=== PATIENT | male | born 1945 | race Caucasian/White ===

== ENCOUNTER → 2017-02-07 | Outpatient (CLI) | payer OTHER ==
[~2017-02-07] MED LIST: 1-ME1LIQ PO; ALLO300T2 PO; AMLO10TA2 PO; ASPI81CH37 CHEW; CHOL20005 PO; CLON0.1T PO; COZA100T PO; CYAN1TAB24; LOSA100T PO; NEUR600T PO; PANT40TA3 PO; PLAV75TA PO; PLAV75TA29 PO; PRAV20 PO; PRAV40TA2 PO
== END ==
LOC: HRAD 11:11
PROVIDERS: ATTEND Urology
DX: N28.89 Other specified disorders of kidney and ureter (principal)

== ENCOUNTER 2017-02-13 13:34 | Day surgery (SDC) | payer OTHER ==
[~2017-02-13 13:34] MED LIST changes: -AMLO10TA2 PO; -ASPI81CH37 CHEW; -CHOL20005 PO; -CLON0.1T PO; -CYAN1TAB24; -LOSA100T PO; -NEUR600T PO; -PANT40TA3 PO; -PLAV75TA29 PO; -PRAV40TA2 PO
[2017-02-13] MEDS ORDERED: PLAV75TA29 PO (14:19)
[2017-02-13] MEDS ORDERED: NEUR600T PO (14:19)
[2017-02-13] MEDS ORDERED: CLON0.1T PO ×2 (14:19)
[2017-02-13] MEDS ORDERED: AMLO10TA2 PO (14:19)
[2017-02-13] MEDS ORDERED: PANT40TA3 PO (14:19)
[2017-02-13] MEDS ORDERED: CYAN1TAB24 (14:19)
[2017-02-13] MEDS ORDERED: PRAV40TA2 PO (14:19)
[2017-02-13] MEDS ORDERED: CHOL20005 PO (14:19)
[2017-02-13] MEDS ORDERED: ASPI81CH37 CHEW (14:19)
[2017-02-13] MEDS ORDERED: ALLO300T2 PO (14:19)
[2017-02-13] MEDS ORDERED: LOSA100T PO (14:19)
--- NOTE | 2017-02-13 16:29 | RADRPT ---
EXAM DATE/TIME: 02/13/2017 00:00 [place] COMPARISON : INDICATIONS : consult for renal cryoablation OBJECTIVE: Temperature: 98.4 Heart Rate: 59 Blood Pressure: 137/69 Respiratory: 16 Oximetry: 99 PNEUMONIA VACCINE: NO HISTORY OF PRESENT ILLNESS: 71-year-old male with history of biopsy-proven left renal cell carcinoma, furham grade 1, status post cryoablation September of last year and at that time, he was found to have a Bosniak 2F cyst in the right kidney. This lesion has increased in size on recent CT with peripheral enhancement and is now concern ing for a malignancy. This mass now measures up to 3.8 cm and is partially endophytic, RENAL Score of 6 (R1,E2, N2,A,L1). Patient is without complaints and denies any unintentional weight loss, hematuri a or abdominal pain. PAST MEDICAL HISTORY : 1. Cerebrovascular disease. 2. Aneurysm, intracranial. 3. Hypercholesterolemia. 4. Hypertension. PAST SURGICAL HISTORY : 1. broken leg repair 2. bleeding ulcer 3. left renal cryo SOCIAL HISTORY : Social alcohol use. Tobacco;none. ALLERGIES: 1. NKDA MEDICATIONS: 1. Plavix (Clopidogrel Bisulfate) 75 mg q.d. 2. protonix 40 mg q.d. 3. losartan 100 mg q.d. 4. amlodipine 10 mg q.d. 5. pravastatin 40 mg q.d. 6. allopurinol 300 mg q.d. 7. aspirin 81 mg q.d. 8. gabapentin 300mg 2tabs mg t.i.d. 9. clonidine 0.1 mg prn 10. PHYSICAL EXAMINATION: General: No acute distress Abdomen: Soft, nontender nondistended IMAGING STUDIES: CT examination dated 11/21/2016 is reviewed. There is a partially cystic and solid enhancing mass in t he inferior pole of the right kidney measuring 3.8 x 3.1 cm. No evidence for renal vein invasion or p erinephric extension. ASSESSMENT: 72-year-old male with history of treated left renal cell carcinoma with now very worrisome partially solid enlarging 3.8 cm mass in the inferior pole of the right kidney, RENAL score of 6. Extensive discussion regarding treatment options including nephrectomy, partial nephrectomy, and cryo ablation. There is concern regarding appropriate margins particularly along the medial aspect of the mass given the 3.8 cm size and proximity to central calyces. I discussed this at length with the dee ent and his . Given history of now bilateral renal masses, nephron sparing procedure is still pre ferred. Biopsy would help guide future treatments given concern for suboptimal medial margins. PLAN: Tentative plan for biopsy and cryoablation. TIME SPENT: 30 minutes Freddy Gonzalez MD on February 13, 2017 at 16:10 Board Certified Radiologist. This report was verified electronically.
== END 2017-02-13 15:00 | disposition home or self-care (01) ==
LOC: HROP 13:34 → HRIP 13:35 → HROP 15:00
PROVIDERS: ATTEND Urology
DX: N28.1 Cyst of kidney, acquired (principal); C64.2 Malignant neoplasm of left kidney, except renal pelvis; I10 Essential (primary) hypertension; I67.9 Cerebrovascular disease, unspecified; E78.00 Pure hypercholesterolemia, unspecified; Z85.528 Personal history of other malignant neoplasm of kidney

== ENCOUNTER 2017-03-06 08:02 | Day surgery (SDC) | payer OTHER ==
[~2017-03-06] VITALS: Ht 177.8 cm; Wt 114.5 kg
[~2017-03-06 08:02] MED LIST changes: -1-ME1LIQ PO; +AMLO10TA2 PO; +ASPI81CH6 CHEW; +CLON0.1T PO; -COZA100T PO; +CYAN1TAB24; +D200CAP PO; +LOSA100T PO; +NEUR600T PO; +PANT40TA3 PO; -PLAV75TA PO; +PLAV75TA29 PO; -PRAV20 PO; +PRAV40TA2 PO
[2017-03-06 08:20] VITALS: BP 138/76; PULSE 47; RESP 20; TEMP 97.6; O2SAT 97
[2017-03-06] MEDS ORDERED: INSULIN HUMAN REGULAR 1,000 UNITS/10 ML VIAL SQ PRN (09:00)
[2017-03-06] MEDS ORDERED: SODIUM CHLORID 0.9% 500 ML IV PRN (09:00)
[2017-03-06] MEDS ORDERED: CHLORHEXIDINE GLUCONATE 2 % 1 PACK (2 CLOTHS) TOPICAL PRN (09:00)
[2017-03-06] MEDS ORDERED: METOPROLOL TARTRATE 25 MG TAB PO PRN (09:00)
[2017-03-06] MEDS ORDERED: LACTATED RINGER'S 1000 ML IV PRN (09:00)
[2017-03-06] MEDS ORDERED: SODIUM CHLOR 0.9% 1000 ML INJ 1,000 ML IV SCH (09:00)
[2017-03-06] MEDS ORDERED: POVIDONE IODINE 5% (ANTISEPSIS KIT) 4 APPLICATIONS EACH NARE PRN (09:00)
[2017-03-06] MEDS ORDERED: ceFAZolin 2 GM PREMIX 50 ML IV SCH (09:00)
[2017-03-06 09:05] LABS: AUTOMATED NEUTROPHIL # 3.3 TH/MM3 (1.8-7.7); BASOPHIL # 0.1 TH/MM3 (0-0.2); EOSINOPHIL # 0.2 TH/MM3 (0-0.4); EOSINOPHIL % 3.6 % (0.0-4.0); HEMATOCRIT 40.6 % (39.0-51.0); HEMO FLAGS DIFF FINAL; LYMPH % 33.3 % (9.0-44.0); LYMPHOCYTE # 2.2 TH/MM3 (1.0-4.8); MEAN CELL VOLUME 90.4 FL (80.0-100.0); MEAN CORPUSCULAR HGB CONC 33.2 % (32.0-36.0); MONO % 12.1 % (0.0-8.0); PLATELET COUNT 224 TH/MM3 (150-450); RED CELL DISTRIBUTION WIDTH 14.4 % (11.6-17.2); WHITE BLOOD COUNT 6.6 TH/MM3 (4.0-11.0)
[2017-03-06 09:13] LABS: APTT (PATIENT) 27.6 SEC (24.3-30.1); PROTHROMBIN TIME - PATIENT 11.1 SEC (9.8-11.6)
[2017-03-06] MEDS ORDERED: LIDOCAINE 1%/EPINEPHrine 1:100,000 SOLN 20 ML VIAL ONE (09:32)
[2017-03-06 09:34] LABS: BICARBONATE 25.3 MEQ/L (21.0-32.0)
[2017-03-06 09:35] LABS: POTASSIUM 5.3 MEQ/L (3.5-5.1)
--- NOTE | 2017-03-06 15:18 | EKG ---
Date Performed: 03/06/2017 Time Performed: 08:32:38 PTAGE: 72 years EKG: SINUS BRADYCARDIA WITH OCCASIONAL VENTRICULAR PREMATURE COMPLEXES DELAYED R WAVE PROGRESSIO N PROBABLE INFERIOR MYOCARDIAL INFARCTION , PROBABLY OLD ABNORMAL ECG PREVIOUS TRACING : 09/21/2015 07.36 Compared to prior tracing no significant change DOCTOR: Marcelo Camacho Interpretating Date/Time 03/06/2017 15:16:20
== END 2017-03-06 11:51 | disposition home or self-care (01) ==
LOC: HRIP 08:02 → HRAD 08:02
PROVIDERS: ATTEND Urology
DX: D41.01 Neoplasm of uncertain behavior of right kidney (principal); R94.31 Abnormal electrocardiogram [ECG] [EKG]; Z53.09 Procedure and treatment not carried out because of other contraindication; Z86.73 Personal history of transient ischemic attack (TIA), and cerebral infarction without residual deficits; Z01.810 Encounter for preprocedural cardiovascular examination; Z01.818 Encounter for other preprocedural examination
CPT/HCPCS: 80048; 85025; 85610; 85730; 93005

== ENCOUNTER 2017-03-25 10:18 | Inpatient (IN) | payer OTHER, MEDICARE ==
[2017-03-25] VITALS (15 sets, daily range): BP systolic 116–126; BP diastolic 64–76; PULSE 40–48; RESP 16; TEMP 97.1–97.9; O2SAT 98–100
[~2017-03-25] VITALS: Ht 175.3 cm; Wt 108.7 kg
[2017-03-25] MEDS ORDERED: IOHEXOL 350 MG/ML 100 ML BTL (for Cath Lab) OTHER ONE (10:19)
[2017-03-25 11:11] LABS: AUTOMATED NEUTROPHIL # 3.1 TH/MM3 (1.8-7.7); BASOPHIL # 0.1 TH/MM3 (0-0.2); BASOPHIL % 0.8 % (0.0-2.0); EOSINOPHIL # 0.2 TH/MM3 (0-0.4); EOSINOPHIL % 3.7 % (0.0-4.0); HEMATOCRIT 40.1 % (39.0-51.0); HEMO FLAGS DIFF FINAL; LYMPH % 33.7 % (9.0-44.0); LYMPHOCYTE # 2.1 TH/MM3 (1.0-4.8); MEAN CELL VOLUME 90.5 FL (80.0-100.0); MEAN CORPUSCULAR HEMOGLOBIN 29.6 PG (27.0-34.0); MEAN CORPUSCULAR HGB CONC 32.7 % (32.0-36.0); MONO % 12.5 % (0.0-8.0); NEUT % 49.3 % (16.0-70.0); PLATELET COUNT 223 TH/MM3 (150-450); RED BLOOD COUNT 4.43 MIL/MM3 (4.50-5.90); RED CELL DISTRIBUTION WIDTH 14.3 % (11.6-17.2); WHITE BLOOD COUNT 6.3 TH/MM3 (4.0-11.0)
[2017-03-25 11:21] LABS: APTT (PATIENT) 27.3 SEC (24.3-30.1); PROTHROMBIN TIME - PATIENT 10.7 SEC (9.8-11.6)
[2017-03-25 11:27] LABS: POTASSIUM 3.7 MEQ/L (3.5-5.1)
[2017-03-25] MEDS ORDERED: MIDAZOLAM HCL 2 MG/2 ML VIAL ONE ×2 (12:19→13:05)
[2017-03-25] MEDS ORDERED: HEPARIN-NS/PF INJ 1,000 ML ONE (12:19)
[2017-03-25] MEDS ORDERED: HEPARIN SODIUM - IV 10,000 UNITS/10 ML VIAL ONE (12:20)
[2017-03-25] MEDS ORDERED: NITROGLYCERIN INJ 5 ML ONE (12:20)
[2017-03-25] MEDS ORDERED: VERAPAMIL HCL 5 MG/2 ML VIAL ONE (12:20)
[2017-03-25] MEDS ORDERED: STERILE WATER FOR INJECTION 10 ML VIAL ONE (12:58)
[2017-03-25] MEDS ORDERED: BIVALIRUDIN 250 MG VIAL ONE (12:58)
[2017-03-25] MEDS ORDERED: MISC INFORMATION XX ONE (13:45)
--- NOTE | 2017-03-25 13:48 | CATHPROC ---
DZZOM HIS Report Study Information Study Number Admission Scheduled Start Study Start [id number] Mar 25 2017 10:18AM 03/25/2017 Mar 25 2017 12:15PM [place] [facility] Cardiac Catheterization Admit Source Facility Department Other [facility] - Dental Office Assistant Physician and Clinical Staff Initial Jose Mcclendon Retail Gift Card Merchandising Sary Azevedo,DEIDRA Retail Gift Card Merchandising Dorinda Garcia,DEIDRA Recorder Jef Marie,RT(R) Scrub Anjel Rolon,RT(R) Procedures Performed Procedure Location (Site) Vessel Name Coronary Angiograms LCA Left Coronary Coronary Angiograms RCA Right Coronary L Heart Cath Wire insertion Radial (right) Radial Art. Equipment Time Post Exchange Manager Description Size Mfg Part Number Used/Scraped TRANSDUCER, TRUWAVE [id number] 12:23 VELIZ MUNOZ * Used W/STOCKCOCK *[id number] INTRODUCER SET, 13:16 [employer] FR 5 [id number] *[id number] Used MICROPUNCTURE, STIFFENED [id number] *[id number] *[id number] *[id number] *[id number] 12:23 [employer] PACK, CCL CUSTOM * Used *[id number] 12:23 [employer] SUPPORT, ARTERIAL ADULT [id number] *[id number] Used BAND, RADIAL COMPRESSION TR [id number] 13:20 [employer] MEDICAL 29CM Used LARGE 29 *[id number] 12:23 [employer] WIRE, 3MMJ .035 180CM 180CM Used *[id number] 12:23 NAMIC MANIFOLD, 4 PORT * Used *[id number] 12:23 [employer] OMNIPAQUE, 350 MG, 150ML 150ML [id number] Used [id number] 12:23 [employer] MED[employer] BLANKET,WARM AIR CCL * Used *[id number] CATHETER, FR5 OPTITORQUE [id number] 12:50 [employer] MEDICAL FR 5 Used KOFI RADIAL *[id number] 13:16 [employer] MEDICAL SHEATH, FR6 TERUMO (10CM) FR 6 Used *[id number] SHEATH, FR6 TRANSRADIAL [id number] 12:23 [employer] MEDICAL FR 6 Used SLENDER 10CM *[id number] WIRE, RUNTHROUGH NS FLOPPY [id number] 13:02 [employer] 180CM Used .014 180CM *[id number] WIRE, ANGLED GLIDE .035 [id number] 12:52 [employer] MEDICAL/RACQUEL 260CM Used 260CM *[id number] Equipment Model, Serial, Lot Number and Expiration Data Description Model Number Serial Number Lot Number Expiration Date INTRODUCER SET, [id number] 02-13-2020 MICROPUNCTURE, STIFFENED History: Current Medications Medication Dosage/Unit Route Frequency Last Date/Time Taken ASA 81 mg PLAVIX 75 mg Statins (any) History: Allergies Allergy Reaction No Known Allergies History: Risk Factors Family History of Hypertension Dyslipidemia Previous AR Previous Heart Failure Premature CAD Yes Yes No No No Prior Valve Prior PCI Prior CABG Surgery No No No Cerebrovascular Peripheral Artery Chronic Lung On Dialysis Diabetes Disease Disease Disease No Yes No No No History: Stress Tests Stress or Imaging Studies Performed Yes Standard Exercise Stress Test No Stress Echo No Stress Test SPECT Stress Test SPECT Result Stress Test SPECT Ischemia Risk/Extent Yes Positive Intermediate Stress Test CMR No Cardiac CTA Coronary Calcium Score No No History: Other Disease Selection Items HTN History: Other Current Smoker No Labs Hgb (g/dl) Hct (%) RBC (MIL/MM3) WBC (l/cumm) Platelets (thousands) 11.60-17.00 35.00-51.00 4.00-5.90 4.00-11.00 150.00-450.00 13.1 40.1 4.4 6.3 223 Glucose (mg/dl) BUN (mg/dl) Creatinine (mg/dl) BUN:Creatinine (1:x) 74.00-106.00 7.00-18.00 0.50-1.30 10.00-20.00 105 18 1.5 12 Na (meq/l) K (meq/l) Cl (meq/l) CO2 (mmol/L) Ca (mg/dl) 136.00-145.00 3.50-5.10 98.00-107.00 21.00-32.00 8.50-10.10 143 3.7 108 26 8.5 PT (sec) PTT (sec) INR (PTT:PT) 9.80-11.60 24.30-30.10 0.90-1.10 10.7 27.3 1 CPK-MB (ng/ML) 0.50-3.60 Not Drawn Medication Medication Total Dose (Bolus/Oral) Medication Total Dosage/Unit 1% XYLOCAINE 5 mL ANGIOMAX BOLUS 16 mL FENTANYL 75 mcg RADIAL COCKTAIL 5 mL (Bolus) VERSED 3 mg Medications (Bolus/Oral) Medication Time Given Dosage/Unit Administered By Reason 03/25/2017 12:48:54 1% XYLOCAINE 5 mL MosquedaDelvis Sawantro PM 5 mL 1% XYLOCAINE given in lab by Jose Rodriguez in Right Radial via Subcutaneous. 03/25/2017 12:48:56 VERSED 2 mg Sary Azevedo PM 2 mg VERSED given in lab by Sary Azevedo RN in Left Antecubital via Peripheral IV. 03/25/2017 12:49:20 FENTANYL 50 mcg Sary Azevedo PM 50 mcg FENTANYL given in lab by Sary Azevedo RN in Left Antecubital via Peripheral IV. 03/25/2017 12:50:10 Ntg 200mcg Verapamil 2.5mg Heparin RADIAL COCKTAIL 5 mL (Bolus) Sary Azevedo PM 2500U 5 mL (Bolus) RADIAL COCKTAIL given in lab by Sary Azevedo RN via Radial. Using [Solution Name]. Re ason: Ntg 200mcg Verapamil 2.5mg Heparin 2500U. ANGIOMAX BOLUS 03/25/2017 1:02:54 PM 16 mL Sary Azevedo 16 mL ANGIOMAX BOLUS given in lab by Sary Azevedo RN in Left Antecubital via Peripheral IV. VERSED 03/25/2017 1:06:39 PM 1 mg Sary Azevedo 1 mg VERSED given in lab by Sary Azevedo RN in Left Antecubital via Peripheral IV. FENTANYL 03/25/2017 1:06:45 PM 25 mcg Sary Azevedo 25 mcg FENTANYL given in lab by Sary Azevedo RN in Left Antecubital via Peripheral IV. Medication (Drip) Medication Time Given Dosage/Unit Concentration/Unit Diluent (ml) Solution ANGIOMAX DRIP 03/25/2017 1:03:17 PM 1.75 mg/kg/hr 250 mg 50 NaCl .9 1.75 mg/kg/hr ANGIOMAX DRIP given in lab by Sary Azevedo RN in Left Antecubital via Peripheral IV. Pump/Drip Flow = 38.4 ml/hr using NaCl .9 with a concentration of 250 mg in 50 ml. ANGIOMAX DRIP 03/25/2017 1:27:21 PM 0 units/hr 0 STOPPED 0 units/hr ANGIOMAX DRIP STOPPED given in lab by Dorinda Garcia, DEIDRA. Pump/Drip Flow = 0 ml/hr using [Solution Name]. Initial Case Assessment Cardiovascular HR Rhythm NIBP Chest Pain 50 Sinus/Jameel 122/57 0 Edema Present Skin color Skin None Normal Warm Dry Circulatory - Right Pulses Dorsalis Pedis Femoral Radial 2 2 2 Scale (0,1,2,3,4,d) Scale (0,1,2,3,4,d) Neurological State Oriented to time-place- Alert Moves all extremities person Respiration - General Respiration Rate SpO2 (%) O2 (lpm) (B/min) 14 99 0 Final Case Assessment Cardiovascular HR Rhythm NIBP Chest Pain 48 Sinus/Jameel 99/60 0 Edema Present Skin color Skin None Normal Warm Dry Circulatory - Right Pulses Dorsalis Pedis Femoral Radial 2 2 2 Scale (0,1,2,3,4,d) Scale (0,1,2,3,4,d) Neurological State Oriented to time-place- Alert Moves all extremities person Respiration - General Respiration Rate SpO2 (%) O2 (lpm) (B/min) 21 99 2 Chronological Log Time Study Chronological Log 12:15:02 Patient arrived via Bed. 12:15:03 Patient Name, D.O.B, / Armband Verified By R.N. 12:15:04 Consent signed by the physician and the patient and verified by the Dental Office Assistant staff. 12:15:05 Pre-op and post- op instructions given; patient acknowledges understanding of instructions. Verbal Stimulation=~VERBAL~ Physical Stimulation=~PHYSICAL~ Airway=~AIRWAY~ Respiration=~RESPIR ATION~ 12:15:06 TOTAL=~TOTAL~. (0=absent, 1=limited, 2=present) Vitals capture started with the following parameters, Patient=Adult, Interval=3 min, Initial Pr pefdtm=383 mmHg, 12:18:58 Deflation Rate=5 mmHg, Cuff placed on Right Arm 12:19:02 Presedation assessment performed by Dental Office Assistant RN. 12:19:03 Allens test performed on the right radial and ulnar artery. 12:19:07 Allens test performed on the right radial and ulnar artery. 12:19:10 Patient has been NPO for More than 6Hrs. 12:19:11 Skin Breakdown- nonw per patient. 12:19:32 Patient Warmer Placed on the Table. 12:19:34 Marline Prominences Protected 12:19:36 LYAV=469/57 mmhg, SpO2=99.0 %, Pain=0, Raquel=10, Jain=2 12:19:36 A # 20 IV was noted in the Antecubital (left). Grade = 0 12:21:32 History and physical on the chart or being dictated. Assessment: Initial Case, HR=50 BPM, Rhythm=Sinus/Jameel, GENF=341/57 mmhg, Chest Pain=0, Edema= None, Color=Normal, Skin = Warm, Dry 12:21:34 Right Pulses: Dariel Ped=2, Femoral=2, Radial=2 Neurological: State=Alert, Ox3, BONE Respiration: Resp=14 B/min, SpO2=99 %, O2=0 lpm 12:22:30 CSWJ=775/58 mmhg, SpO2=99.0 %, Resp=12 B/min, Pain=0, Raquel=10, Jain=2 12:22:50 Table restraints applied according to hospital policy 12:23:15 Reference ECG taken 12:25:30 HR=50 bpm, IVGH=746/59 mmhg, YyW3=222.0 %, Resp=6 B/min, Pain=0, Raquel=10, Jain=2 12:28:30 HR=48 bpm, TOMP=258/61 mmhg, ZqU6=311.0 %, Resp=20 B/min, Pain=0, Raquel=10, Jain=2 12:29:49 Right Radial and groin(s) prepped with 2% chlorhexidine, and draped after a 3 min. waiting time. 12:31:11 MD paged 12:31:33 HR=47 bpm, IQOX=349/57 mmhg, KpB2=414.0 %, Resp=12 B/min, Pain=0, Raquel=10, Jain=2 12:34:33 HR=51 bpm, UQTZ=495/65 mmhg, UwE9=604.0 %, Resp=11 B/min, Pain=0, Raquel=10, Jain=2 12:35:09 Pressure channel 1 zeroed. 12:37:31 HR=47 bpm, TNRH=449/64 mmhg, RmJ4=402.0 %, Resp=7 B/min, Pain=0, Raquel=10, Jain=2 12:40:31 HR=48 bpm, KXFY=973/64 mmhg, ZfT7=677.0 %, Resp=10 B/min, Pain=0, Raquel=10, Jain=2 12:43:32 HR=52 bpm, TISX=453/63 mmhg, SpO2=99.0 %, Resp=7 B/min, Pain=0, Raquel=10, Jain=2 12:45:47 MD arrived. 12:47:11 HR=48 bpm, BRHY=135/60 mmhg, KzK3=617.0 %, Resp=6 B/min, Pain=0, Raquel=10, Jain=2 Time Out. Correct patient, correct procedure, correct physician, power injector not loaded with contrast with surgical 12:48:22 team present. Time Out Concurred by MD and individual staff in procedure. 12:48:52 Case Start 12:48:54 5 mL 1% XYLOCAINE given in lab by Jose Rodriguez in Right Radial via Subcutaneous. 12:48:56 2 mg VERSED given in lab by Sary Azevedo, DEIDRA in Left Antecubital via Peripheral IV. 12:49:20 50 mcg FENTANYL given in lab by Sary Azevedo, DEIDRA in Left Antecubital via Peripheral IV. 12:49:36 HR=50 bpm, BKBZ=640/60 mmhg, HaF7=593.0 %, Resp=10 B/min, Pain=0, Raquel=10, Jain=2 12:49:44 Access site was Radial Artery. A SHEATH, FR6 TRANSRADIAL SLENDER 10CM FR 6 was advanced into the Radial (right) using the Perc utaneous 12:50:00 technique. 5 mL (Bolus) RADIAL COCKTAIL given in lab by Sary Azevedo, RN via Radial. Using [Solution Nam e]. Reason: Ntg 12:50:10 200mcg Verapamil 2.5mg Heparin 2500U. A CATHETER, FR5 OPTITORQUE KOFI RADIAL FR 5 was advanced over a wire. OMNIPAQUE, 350 MG, 150ML 150ML 12:50:18 was used for injections. 12:51:50 Wire removed 12:51:51 A WIRE, ANGLED GLIDE .035 260CM 260CM was inserted via Radial (right). 12:52:22 Wire removed 12:52:38 HR=50 bpm, NIBP=96/52 mmhg, SpO2=81.0 %, Resp=12 B/min, Pain=0, Raquel=10, Jain=2 Recorded Pressure: Ao, HR=49, Condition=Condition 1 12:52:55 (Aorta) Ao 105/58/78 12:53:12 The LCA was injected and visualized at various angles. OMNIPAQUE, 350 MG, 150ML 150ML used . 12:55:35 HR=52 bpm, NIBP=99/45 mmhg, SpO2=92.0 %, Resp=11 B/min, Pain=0, Raquel=10, Jain=2 12:55:56 The RCA was injected and visualized at various angles. OMNIPAQUE, 350 MG, 150ML 150ML used . 12:58:10 Wire removed 12:58:37 A WIRE, ANGLED GLIDE .035 260CM 260CM was inserted via Radial (right). 12:59:14 HR=51 bpm, NIBP=93/54 mmhg, SpO2=95.0 %, Resp=10 B/min, Pain=0, Raquel=10, Jain=2 After removing the current catheter a JR 4.0 GUIDE CATHETER FR 6 was advanced over a WIRE, ANGL ED GLIDE .035 13:00:56 260CM 260CM. 13:01:31 HR=47 bpm, NIBP=96/53 mmhg, SpO2=98.0 %, Resp=10 B/min, Pain=0, Raquel=10, Jain=2 13:02:02 Wire removed 13:02:54 16 mL ANGIOMAX BOLUS given in lab by Sary Azevedo, DEIDRA in Left Antecubital via Peripheral IV. 1.75 mg/kg/hr ANGIOMAX DRIP given in lab by Sary Azevedo, DEIDRA in Left Antecubital via Peripher al IV. Pump/Drip 13:03:17 Flow = 38.4 ml/hr using NaCl .9 with a concentration of 250 mg in 50 ml. 13:04:31 HR=49 bpm, NIBP=96/56 mmhg, SpO2=99.0 %, Resp=11 B/min, Pain=0, Raquel=10, Jain=2 13:05:39 A WIRE, RUNTHROUGH NS FLOPPY .014 180CM 180CM was inserted via Radial (right). 13:06:39 1 mg VERSED given in lab by Sary Azevedo, RN in Left Antecubital via Peripheral IV. 13:06:45 25 mcg FENTANYL given in lab by Sary Azevedo, RN in Left Antecubital via Peripheral IV. 13:07:33 HR=49 bpm, SFCN=984/50 mmhg, MtA7=391.0 %, Resp=11 B/min, Pain=0, Raquel=10, Jain=2 13:08:12 Vitals capture stopped. After removing the current catheter a AR 1 GUIDE CATHETER FR 6 was advanced over a WIRE, 3MMJ . 035 180CM 13:11:09 180CM. 13:11:23 A WIRE, RUNTHROUGH NS FLOPPY .014 180CM 180CM was inserted via Radial (right). Vitals capture started with the following parameters, Patient=Adult, Interval=5 min, Initial Pr jndaua=567 mmHg, 13:11:51 Deflation Rate=5 mmHg, Cuff placed on Right Arm 13:12:32 HR=58 bpm, NIBP=84/48 mmhg, SpO2=99.0 %, Resp=11 B/min, Pain=0, Raquel=10, Jain=2 13:14:52 Wire removed 13:14:55 Catheter was removed 13:17:54 HR=48 bpm, NIBP=99/61 mmhg, WxD7=090.0 %, Resp=10 B/min, Pain=0, Raquel=10, Jain=2 13:20:05 Case End Radial Compression Device Used. 15 mLs of air placed in BAND, RADIAL COMPRESSION TR LARGE 29 29 CM. Affected 13:21:14 hand 97 % O2 saturation. 13:21:36 No case complications noted. 13:21:37 Cine recording checked. Assessment: Final Case, HR=48 BPM, Rhythm=Sinus/Jameel, NIBP=99/60 mmhg, Chest Pain=0, Edema=No ne, Color=Normal, Skin = Warm, Dry 13:21:43 Right Pulses: Dariel Ped=2, Femoral=2, Radial=2 Neurological: State=Alert, Ox3, BONE Respiration: Resp=21 B/min, SpO2=99 %, O2=2 lpm 13:22:20 HR=47 bpm, NIBP=99/60 mmhg, QsN6=808.0 %, Resp=12 B/min, Pain=0, Raquel=10, Jain=2 13:23:56 A Left Heart Cath was performed. 13:27:07 Vitals capture stopped. 0 units/hr ANGIOMAX DRIP STOPPED given in lab by Dorinda Garcia, RN. Pump/Drip Flow = 0 ml/hr using [Solution 13:27:21 Name]. 13:28:54 Patient moved to [facility] End Study - Contrast Media Used In Study Contrast Total Opened (mL) Total Used (mL) Total Wasted (mL) Omnipaque 150 80 70 End Study - Maximum Contrast Load Max Contrast Load (mL) 365.6 End Study - Radiation Exposure Fluoro Time (minutes) 13.8 End Study - Patient Disposition Complications Transferred To Interventional Outcome No Outpatient Bed No attempt made
[2017-03-25] MEDS: SODIUM CHLOR 0.9% 1000 ML INJ 1,000 ML IV SCH (14:04)
[2017-03-25] MEDS ORDERED: ZOLPIDEM TARTRATE 5 MG TAB PO PRN (14:30)
[2017-03-25] MEDS ORDERED: MORPHINE SULFATE 4 MG/ML INJ IV PUSH PRN (14:30)
[2017-03-25] MEDS ORDERED: SODIUM CHLORIDE 0.9% FLUSH 10 ML FLUSH IV FLUSH PRN (14:30)
[2017-03-25] MEDS ORDERED: cloNIDine HCL 0.1 MG TAB PO PRN (14:30)
[2017-03-25] MEDS ORDERED: ACETAMINOPHEN 325 MG TAB PO PRN ×2 (14:30)
[2017-03-25] MEDS ORDERED: oxyCODONE/ACETAMINOPHEN 5 MG/325 MG TAB PO PRN (14:30)
[2017-03-25] MEDS ORDERED: LACTULOSE SYRUP 20 GM/30 ML CUP PO PRN (14:30)
[2017-03-25] MEDS ORDERED: PROCHLORPERAZINE 25 MG SUPP RECTAL PRN (14:30)
[2017-03-25] MEDS ORDERED: SENNOSIDES 8.6 MG TAB PO PRN (14:30)
[2017-03-25] MEDS ORDERED: NALOXONE HCL 0.4 MG/ML AMP IV PUSH PRN (14:30)
[2017-03-25] MEDS ORDERED: MAGNESIUM HYDROXIDE SUSP 30 ML CUP PO PRN (14:30)
[2017-03-25] MEDS ORDERED: oxyCODONE/ACETAMINOPHEN 10 MG/325 MG TAB PO PRN (14:30)
[2017-03-25] MEDS ORDERED: ONDANSETRON HCL 4 MG/2 ML VIAL IVP PRN (14:30)
[2017-03-25] MEDS ORDERED: MORPHINE SULFATE 2 MG/ML INJ IV PUSH PRN (14:30)
[2017-03-25] MEDS ORDERED: BISACODYL 10 MG SUPP RECTAL PRN (14:30)
--- NOTE | 2017-03-25 14:40 | MA ---
cc: JOE MARISCAL DATE: 03/25/2017 1943 PROCEDURE PERFORMED 1. Left heart catheterization. 2. Selective right and left coronary angiography. INDICATION Preoperative evaluation. Positive stress test inferior wall. Chronic kidney disease. ACCESS Right transradial. DESCRIPTION OF PROCEDURE Consent was signed. The patient was prepped and draped in sterile fashion. Using 1% lidocaine for local anesthesia and a micropuncture kit a 6-[place] sheath was inserted into the right radial artery. Antispasmodic cocktail was given, then selective right and left coronary angiography was performed with a Zachary 5-[place] catheters. Angiography was taken in multiple views where identified several significant lesions, one in the left circumflex, the second one in the first OM and the third one in the right coronary artery. Please refer to angiography description for details. This vessels are amendable to PCI , however, given the patient has kidney disease he will need hydration before proceeding. Thus, the procedure was stopped. The right radial access site was closed with a TR band. RESULTS ANGIOGRAPHY 1. The right coronary artery is a dominant vessel, is calcified, is giving off the PDA. It has 90% proximal lesion which is long measuring at least 20 mm and a distal 90% lesion. PDA and PL branches are wide, patent. 2. LAD. It is long, patent, is giving off the ramus vessel, the left circumflex and the LAD. It has no significant coronary artery disease or blockages. 3. LAD is a transapical vessel. He has calcification in its mid proximal to mid segment. It is giving off four diagonal vessels which are patent with TACOS III flow and nonobstructive coronary artery disease. The LAD is giving collaterals to the right coronary arteries to the septals. 4. The left circumflex artery has a proximal 75% lesion. It is giving off two OM branches. The first OM has significant 99% lesion and the second OM2 has a patent stent in this area. The ramus is patent with TACOS III flow and minimal luminal irregularities throughout. CONCLUSION 1. Two-vessel coronary artery disease with significant blockages in the left circumflex, OM and right coronary artery. 2. Renal mass. 3. Chronic kidney disease. RECOMMENDATIONS The patient will be admitted for observation and will attempt PCI tomorrow. MD SYLWIA Loco/TLL /1:46 PM /2:21 PM [facility]
--- NOTE | 2017-03-25 15:38 | PD.CONS ---
[facility] By Dr. Mosqueda, Cardiology team Reason for Consult Medical Management Primary Care Physician Renu Brown Diagnoses: History of Present Illness Patient is a 72-year-old male with primary medical history of HTN, CVA 5 years ago, gout, kidney neoplasm who came in to the hospital for cardiac catheterization. Patient is status post cardiac catheter with right radial access done by Dr. Mosqueda. As per patient, he is due for a right kidney cryoablation for a renal mass but needing cardiac clearance. He went into the cardiology office and had EKG done but they've noticed that his EKG was abnormal that they sent him to do cardiac catheterization. States he is doing well. Denies any pain or discomfort. Denies chest pain, palpitations, headaches, dizziness. Denies any shortness of breath or dyspnea. Review of Systems Constitutional: DENIES: Diaphoretic episodes, Fatigue, Fever, Weight gain, Weight loss Endocrine: DENIES: Heat/cold intolerance, Polydipsia, Polyuria Eyes: DENIES: Blurred vision, Diplopia, Eye inflammation Ears, nose, mouth, throat: DENIES: Tinnitus, Hearing loss Respiratory: DENIES: Apneas, Cough Cardiovascular: DENIES: Chest pain, Palpitations, Syncope, Dyspnea on Exertion Gastrointestinal: DENIES: Abdominal pain, Black stools, Bloody stools Musculoskeletal: DENIES: Joint pain, Muscle aches Integumentary: DENIES: Abnormal pigmentation, Nail changes Hematologic/lymphatic: DENIES: Bruising, Lymphadenopathy Immunologic/allergic: DENIES: Eczema, Urticaria Neurologic: DENIES: Abnormal gait, Headache Psychiatric: DENIES: Anxiety, Confusion Except as stated in HPI: all other systems reviewed are Neg Past Family Social History Allergies: Coded Allergies: No Known Allergies (Unverified Allergy, Unknown, 03/06/17) Past Medical History HTN Gout Bleeding Ulcers - 6 mos ago S/P cauterization CVA 5 years ago, right-sided weakness Neoplasm kidney Past Surgical History Renal cryoablation, left side Left lower extremity fracture with surgery Cauterization of bleeding ulcers Reported Medications Reported Meds & Active Scripts Active Reported Neurontin (Gabapentin) 600 Mg Tab 600 Mg PO TID D3 Super Strength (Cholecalciferol) 2,000 Unit Cap 2,000 Units PO DAILY B12 (Cyanocobalamin) 1,000 Mcg Tab Aspirin Low Dose (Aspirin) 81 Mg Chew 81 Mg CHEW DAILY Allopurinol 300 Mg Tab 300 Mg PO DAILY Pravastatin 40 Mg Tab 40 Mg PO DAILY Amlodipine (Amlodipine Besylate) 10 Mg Tab 10 Mg PO DAILY Plavix (Clopidogrel Bisulfate) 75 Mg Tab 75 Mg PO DAILY Losartan (Losartan Potassium) 100 Mg Tab 100 Mg PO DAILY Pantoprazole (Pantoprazole Sodium) 40 Mg Tab 40 Mg PO DAILY Active Ordered Medications Current Medications Medications (Trade) Dose Ordered Sig/Abbie Route Start Time Stop Time Status Last Admin Sodium Chloride 1,000 ml @ 100 mls/hr Q10H IV 03/25/17 13:45 03/26/17 01:44 03/25/17 14:04 (Norvasc) 10 mg DAILY PO 03/26/17 09:00 (Aspirin Chew) 81 mg DAILY CHEW 03/26/17 09:00 (Plavix) 75 mg DAILY PO 03/26/17 09:00 (Neurontin) 600 mg TID PO 03/25/17 18:00 (Protonix) 40 mg DAILY PO 03/26/17 09:00 (Pravachol) 40 mg DAILY PO 03/26/17 09:00 (Catapres) 0.1 mg Q4H PRN PO 03/25/17 14:30 (NS Flush) 2 ml UNSCH PRN IV FLUSH 03/25/17 14:30 (NS Flush) 2 ml BID IV FLUSH 03/25/17 21:00 (Tylenol) 650 mg Q4H PRN PO 03/25/17 14:30 (Zofran Inj) 4 mg Q6H PRN IVP 03/25/17 14:30 (Compazine Supp) 25 mg Q12H PRN RECTAL 03/25/17 14:30 (Ambien) 5 mg HS PRN PO 03/25/17 14:30 (Tylenol) 650 mg Q6H PRN PO 03/25/17 14:30 (Percocet 5-325 Mg) 1 tab Q6H PRN PO 03/25/17 14:30 (Percocet 10-325 Mg) 1 tab Q6H PRN PO 03/25/17 14:30 (Morphine Inj) 2 mg Q3H PRN IV PUSH 03/25/17 14:30 (Morphine Inj) 4 mg Q3H PRN IV PUSH 03/25/17 14:30 (Narcan Inj) 0.4 mg UNSCH PRN IV PUSH 03/25/17 14:30 (Maryann-Colace) 1 tab BID PO 03/25/17 21:00 (Milk Of Magnesia Liq) 30 ml Q12H PRN PO 03/25/17 14:30 (Senokot) 17.2 mg Q12H PRN PO 03/25/17 14:30 (Dulcolax Supp) 10 mg DAILY PRN RECTAL 03/25/17 14:30 (Lactulose Liq) 30 ml DAILY PRN PO 03/25/17 14:30 (Vitamin D3) 2,000 units DAILY PO 03/26/17 09:00 Current Medications Heparin Sodium/ Sodium Chloride 1,000 ml @ As Directed STK-MED ONCE .ROUTE Last administered on 03/25/17 12:19; Start 03/25/17 at 12:19; Stop 03/25/17 at 12:20; Status DC Midazolam HCl (Versed Inj) 2 mg STK-MED ONCE .ROUTE Last administered on 12:47; Start 03/25/17 at 12:19; Stop 03/25/17 at 12:20; Status DC Fentanyl Citrate (fentaNYL INJ) 100 mcg STK-MED ONCE .ROUTE Last administered on 03/25/17 12:48; Start 03/25/17 at 12:19; Stop 03/25/17 at 12:20; Status DC Verapamil HCl (Isoptin Inj) 5 mg STK-MED ONCE .ROUTE Last administered on 03/25 12:50; Start 03/25/17 at 12:20; Stop 03/25/17 at 12:21; Status DC Heparin Sodium (Porcine) (Heparin Inj) 10,000 units STK-MED ONCE .ROUTE Last administered on 03/25/17 12:50; Start 03/25/17 at 12:20; Stop 03/25/17 at 12 :21; Status DC Nitroglycerin 5 ml @ As Directed STK-MED ONCE .ROUTE Last administered on 03/25 12:50; Start 03/25/17 at 12:20; Stop 03/25/17 at 12:21; Status DC Bivalirudin (Angiomax Inj) 250 mg STK-MED ONCE .ROUTE Last administered on 13:00; Start 03/25/17 at 12:58; Stop 03/25/17 at 12:59; Status DC Sterile Water (Sterile Water For Injection) 10 ml STK-MED ONCE .ROUTE Last administered on 03/25/17 12:58; Start 03/25/17 at 12:58; Stop 03/25/17 at 12 :59; Status DC Midazolam HCl (Versed Inj) 2 mg STK-MED ONCE .ROUTE Last administered on 13:05; Start 03/25/17 at 13:05; Stop 03/25/17 at 13:06; Status DC Iohexol (OMNIPAQUE 350 INJ (Security Systems Installer)) 100 ml STK-MED ONCE OTHER Last administered on 03/25/17 10:19; Start 03/25/17 at 10:19; Stop 03/25/17 at 13 :45; Status DC Miscellaneous Information 1 ONCE ONCE XX ; Start 03/25/17 at 13:45; Stop at 14:02; Status DC Sodium Chloride 1,000 ml @ 100 mls/hr Q10H IV Last administered on 03/25/17 14:04; Start 03/25/17 at 13:45; Stop 03/26/17 at 01:44 Amlodipine Besylate (Norvasc) 10 mg DAILY PO ; Start 03/26/17 at 09:00 Aspirin (Aspirin Chew) 81 mg DAILY CHEW ; Start 03/26/17 at 09:00 Clopidogrel Bisulfate (Plavix) 75 mg DAILY PO ; Start 03/26/17 at 09:00 Gabapentin (Neurontin) 600 mg TID PO Last administered on 03/25/17 17:43; Start 03/25/17 at 18:00 Pantoprazole Sodium (Protonix) 40 mg DAILY PO ; Start 03/26/17 at 09:00 Pravastatin Sodium (Pravachol) 40 mg DAILY PO ; Start 03/26/17 at 09:00 Clonidine (Catapres) 0.1 mg Q4H PRN PO SBP>160, DBP>90; Start 03/25/17 at 14: 30 Sodium Chloride (NS Flush) 2 ml UNSCH PRN IV FLUSH FLUSH AFTER USING IV ACCESS ; Start 03/25/17 at 14:30 Sodium Chloride (NS Flush) 2 ml BID IV FLUSH ; Start 03/25/17 at 21:00 Acetaminophen (Tylenol) 650 mg Q4H PRN PO TEMP > 100.4; Start 03/25/17 at 14: 30 Ondansetron HCl (Zofran Inj) 4 mg Q6H PRN IVP NAUSEA OR VOMITING; Start at 14:30 Prochlorperazine (Compazine Supp) 25 mg Q12H PRN RECTAL NAUSEA OR VOMITING; Start 03/25/17 at 14:30 Zolpidem Tartrate (Ambien) 5 mg HS PRN PO INSOMNIA; Start 03/25/17 at 14:30 Acetaminophen (Tylenol) 650 mg Q6H PRN PO PAIN SCALE 1 TO 2; Start 03/25/17 at 14:30 Oxycodone/ Acetaminophen (Percocet 5-325 Mg) 1 tab Q6H PRN PO PAIN SCALE 3 TO 5; Start 03/25/17 at 14:30 Oxycodone/ Acetaminophen (Percocet 10-325 Mg) 1 tab Q6H PRN PO PAIN SCALE 6 TO 10; Start 03/25/17 at 14:30 Morphine Sulfate (Morphine Inj) 2 mg Q3H PRN IV PUSH Pain 3-5; if unable to take PO; Start 03/25/17 at 14:30 Morphine Sulfate (Morphine Inj) 4 mg Q3H PRN IV PUSH Pain 6-10;if unable to take PO; Start 03/25/17 at 14:30 Naloxone HCl (Narcan Inj) 0.4 mg UNSCH PRN IV PUSH SEE LABEL COMMENTS; Start 03/25/17 at 14:30 Senna/Docusate Sodium (Maryann-Colace) 1 tab BID PO ; Start 03/25/17 at 21:00 Magnesium Hydroxide (Milk Of Magnesia Liq) 30 ml Q12H PRN PO Mild constipation ; Start 03/25/17 at 14:30 Sennosides (Senokot) 17.2 mg Q12H PRN PO Moderate constipation; Start at 14:30 Bisacodyl (Dulcolax Supp) 10 mg DAILY PRN RECTAL SEVERE CONSITIPATION; Start 03/25/17 at 14:30 Lactulose (Lactulose Liq) 30 ml DAILY PRN PO SEVERE CONSITIPATION; Start 03/25 at 14:30 Cholecalciferol (Vitamin D3) 2,000 units DAILY PO ; Start 03/26/17 at 09:00 Family History Denies any cardiac or cancer history in the family. Social History Occasional alcohol use, social Denies tobacco use Denies illicit drug use Physical Exam Vital Signs Vital Signs Date Time Temp Pulse Resp B/P (MAP) Pulse Ox O2 Delivery O2 Flow Rate FiO2 03/25/17 15:08 97.9 48 16 126/67 (86) 98 03/25/17 15:06 97.7 48 16 126/67 (86) 98 03/25/17 11:01 97.7 46 16 123/76 (92) 100 Physical Exam GENERAL: This is a well-nourished, well-developed patient, in no apparent distress. SKIN: No rashes, ecchymoses or lesions. Cool and dry. HEAD: Atraumatic. Normocephalic. No temporal or scalp tenderness. EYES: Pupils equal round and reactive. Extraocular motions intact. No scleral icterus. No injection or drainage. ENT: Nose without bleeding. Throat without erythema. Uvula midline. Airway patent. NECK: Trachea midline. Supple. CARDIOVASCULAR: Bradycardia without murmurs, gallops, or rubs. RESPIRATORY: Clear to auscultation. Breath sounds equal bilaterally. No wheezes , rales, or rhonchi. GASTROINTESTINAL: Abdomen soft, non-tender, nondistended. BS active. No guarding. MUSCULOSKELETAL: Extremities without clubbing, cyanosis, or edema. No joint tenderness, effusion, or edema noted. No calf tenderness. NEUROLOGICAL: Awake and alert. Oriented to place, person, time, situation. Motor and sensory grossly within normal limits, mild Right sided weakness . Normal speech. Laboratory Laboratory Tests Test 03/25/17 10:50 White Blood Count 6.3 Red Blood Count 4.43 Hemoglobin 13.1 Hematocrit 40.1 Mean Corpuscular Volume 90.5 Mean Corpuscular Hemoglobin 29.6 Mean Corpuscular Hemoglobin Concent 32.7 Red Cell Distribution Width 14.3 Platelet Count 223 Mean Platelet Volume 8.0 Neutrophils (%) (Auto) 49.3 Lymphocytes (%) (Auto) 33.7 Monocytes (%) (Auto) 12.5 Eosinophils (%) (Auto) 3.7 Basophils (%) (Auto) 0.8 Neutrophils # (Auto) 3.1 Lymphocytes # (Auto) 2.1 Monocytes # (Auto) 0.8 Eosinophils # (Auto) 0.2 Basophils # (Auto) 0.1 CBC Comment DIFF FINAL Differential Comment Prothrombin Time 10.7 Prothromb Time International Ratio 1.0 Activated Partial Thromboplast Time 27.3 Blood Urea Nitrogen 18 Creatinine 1.50 Random Glucose 105 Calcium Level 8.5 Sodium Level 143 Potassium Level 3.7 Chloride Level 108 Carbon Dioxide Level 26.0 Anion Gap 9 Estimat Glomerular Filtration Rate 46 Result Diagram: 03/25/17 1050 03/25/17 1050 Assessment and Plan Problem List: (1) Left renal mass ICD Code: N28.89 - Other specified disorders of kidney and ureter Status: Acute (2) HTN (hypertension) ICD Code: I10 - Essential (primary) hypertension Status: Chronic Assessment and Plan Patient is a 72-year-old male with primary medical history of HTN, CVA 5 years ago, gout, kidney neoplasm who came in to the hospital for cardiac catheterization. S/P Cardiac Catheterization - Dr. Mosqueda following, primary physician - Right brachial access. No bleeding noted - Catheter conclusion showed two-vessel coronary artery disease with significant blockages in the left circumflex, OM and right coronary artery. Renal mass. chronic kidney disease. - Plan for a PCI tomorrow - Pain management as ordered. - Monitor for bleeding Renal mass, right side, acute Chronic kidney disease - Patient is for right kidney cryoablation secondary to renal mass - Patient is for cardiac clearance status post cardiac catheter plan for PCI as above - Avoid nephrotoxins continue IV fluid for hydration - Monitor renal indices HTN History of CVA - Continue home medications Norvasc 10 mg daily, aspirin 81 mg daily, Plavix 75 mg daily, pravastatin 40 mg daily - Monitor BP trend. Noted bradycardia 45 heart rate on exam. History of bleeding ulcers - Continue pantoprazole DVT prop SCD The exam, history, and the medical decision-making described in the above note were completed with the assistance of the mid-level provider. I reviewed and agree with the findings presented. I attest that I had a [id number] encounter with the patient on the same day, and personally performed and documented my assessment and findings in the medical record. Code Status Full code Discussed Condition With Patient, nursing, Liat Vela [facility] Mar 25, 2017 15:38 Jerrell Boucher DO Mar 25, 2017 19:24
[2017-03-25] MEDS: GABAPENTIN 300 MG CAP PO SCH (17:43)
[2017-03-25] MEDS: SODIUM CHLORIDE 0.9% FLUSH 10 ML FLUSH IV FLUSH SCH (21:00)
[2017-03-25] MEDS: DOCUSATE SODIUM 50 MG/SENNA 8.6 MG TAB PO SCH (21:00)
[2017-03-26] VITALS (18 sets, daily range): BP systolic 105–116; BP diastolic 50–69; PULSE 43–56; TEMP 97.6–98; O2SAT 97–98
[2017-03-26] MEDS: SODIUM CHLOR 0.9% 1000 ML INJ 1,000 ML IV SCH (00:11)
[2017-03-26 05:53] LABS: AUTOMATED NEUTROPHIL # 2.3 TH/MM3 (1.8-7.7); BASOPHIL % 0.8 % (0.0-2.0); EOSINOPHIL # 0.2 TH/MM3 (0-0.4); HEMATOCRIT 36.1 % (39.0-51.0); HEMO FLAGS DIFF FINAL; LYMPH % 35.2 % (9.0-44.0); LYMPHOCYTE # 1.7 TH/MM3 (1.0-4.8); MEAN CORPUSCULAR HEMOGLOBIN 29.9 PG (27.0-34.0); MEAN CORPUSCULAR HGB CONC 33.2 % (32.0-36.0); MONO % 11.7 % (0.0-8.0); NEUT % 47.3 % (16.0-70.0); PLATELET COUNT 199 TH/MM3 (150-450); RED BLOOD COUNT 4.02 MIL/MM3 (4.50-5.90); RED CELL DISTRIBUTION WIDTH 14.3 % (11.6-17.2); WHITE BLOOD COUNT 4.8 TH/MM3 (4.0-11.0)
[2017-03-26 06:09] LABS: ANION GAP 8 MEQ/L (5-15); AST (GOT) 14 U/L (15-37); BICARBONATE 23.8 MEQ/L (21.0-32.0); BLOOD UREA NITROGEN 13 MG/DL (7-18); CHLORIDE 110 MEQ/L (98-107); GLOMERULAR FILTRATION RATE 59 ML/MIN (>89); MAGNESIUM 1.9 MG/DL (1.5-2.5); POTASSIUM 3.3 MEQ/L (3.5-5.1); SODIUM (NA) 142 MEQ/L (136-145)
[2017-03-26 06:10] LABS: ALT (GPT) 11 U/L (12-78)
[2017-03-26 06:18] LABS: ALKALINE PHOSPHATASE 68 U/L (45-117); FREE T4 0.95 NG/DL (0.76-1.46); TOTAL BILIRUBIN ADULT 0.4 MG/DL (0.2-1.0)
[2017-03-26] MEDS ORDERED: NITROGLYCERIN INJ 5 ML ONE (08:36)
[2017-03-26] MEDS ORDERED: VERAPAMIL HCL 5 MG/2 ML VIAL ONE (08:36)
[2017-03-26] MEDS ORDERED: HEPARIN SODIUM - IV 10,000 UNITS/10 ML VIAL ONE ×2 (08:36→09:47)
[2017-03-26] MEDS ORDERED: HEPARIN-NS/PF INJ 1,000 ML ONE (08:36)
[2017-03-26] MEDS ORDERED: MIDAZOLAM HCL 5 MG/5 ML VIAL ONE (08:37)
[2017-03-26] MEDS ORDERED: PRAVASTATIN SOD 40 MG TAB PO SCH (09:00)
[2017-03-26] MEDS: DOCUSATE SODIUM 50 MG/SENNA 8.6 MG TAB PO SCH (09:00)
[2017-03-26] MEDS ORDERED: PANTOPRAZOLE SOD 40 MG DELAYED RELEASE TAB PO SCH (09:00)
[2017-03-26] MEDS ORDERED: ASPIRIN 81 MG CHEW TAB CHEW SCH (09:00)
[2017-03-26] MEDS: GABAPENTIN 300 MG CAP PO SCH ×3 (09:00→18:05)
[2017-03-26] MEDS: SODIUM CHLORIDE 0.9% FLUSH 10 ML FLUSH IV FLUSH SCH (09:00)
[2017-03-26] MEDS ORDERED: CHOLECALCIFEROL (VIT D3) 1000 UNIT TAB PO SCH (09:00)
[2017-03-26] MEDS ORDERED: CLOPIDOGREL 75 MG TAB PO SCH (09:00)
[2017-03-26] MEDS ORDERED: HEPARIN-NS/PF INJ 500 ML ONE (09:45)
[2017-03-26] MEDS ORDERED: PROTAMINE SULFATE 50 MG/5 ML VIAL ONE (11:13)
--- NOTE | 2017-03-26 11:38 | CATHPROC ---
[facility] HIS Report Study Information Study Number Admission Scheduled Start Study Start [id number] Mar 25 2017 2:31PM 03/26/2017 Mar 26 2017 8:13AM [place] Service Cardiac Catheterization Admit Source Facility Department Other [facility] - Credit Manager Physician and Clinical Staff Initial MD Rodriguez, Jose Dedicated Owner Operatoranthony Post RN, Rico Other Radha Lilly,MANAGER FIRE TECH2 Recorder Sandra Fuchs,RT(R) Scrub Miles Dias,ALEXIS(BS) Procedures Performed Procedure Location (Site) Vessel Name L Heart Cath Wire insertion Fem Art (right) Femoral Art Equipment Time Commissions Analyst Description Size Mfg Part Number Used/Scraped [id number] 09:36 [employer] WIRE, VetCompare FIELDER XT 300CM 300CM Used *[id number] WIRE, BALANCE MIDDLEWEIGHT [id number] 09:12 [employer] 300CM Used 300CM (REY) *[id number] WIRE, WHISPER W/HYDROCOAT [id number] 10:15 [employer] 300CM Used 300CM *[id number] WIRE, WHISPER W/HYDROCOAT [id number] 11:04 [employer] 300CM Used 300CM *[id number] TRANSDUCER, TRUWAVE [id number] 08:15 VELIZ MUNOZ * Used W/STOCKCOCK *[id number] ART 3.5 GUIDE CATHETER [id number] 09:54 [employer] FR 6 Used RUNWAY *[id number] 11:11 CARD[employer]A MEDICAL VASCADE, FR6 CLOSURE SYSTEM FR 6\7 Used *[id number] INTRODUCER SET, 08:57 [employer] FR 5 [id number] *[id number] Used MICROPUNCTURE, STIFFENED [phone] *[id number] [phone] *[id number] [phone] *[id number] [phone] *[id number] WIRE, CHOICE PT 300CM [place] EX. [id number] 09:26 [facility] 300CM Used SUPP *[id number] 08:15 [employer] PACK, CCL CUSTOM * Used *[id number] 08:15 [employer] SUPPORT, ARTERIAL ADULT 93786 *[id number] Used [id number] 09:21 MED[employer]ONIC BALLOON, 1.5 X 6MM SPRINTER 6MM Used *[id number] [id number]- 09:02 [employer] MEDICAL SHEATH, FR6.5 PRELUDE 11CM FR 6.5 038ACT Used *[id number] 08:15 [employer] MEDICAL WIRE, 3MMJ .035 180CM 180CM Used *6421097 [id number] 08:15 NAMIC MANIFOLD, 4 PORT * Used *3948763 08:15 [employer] OMNIPAQUE, 350 MG, 150ML 150ML [id number] Used [id number] 08:15 [employer] MEDICAL BLANKET,WARM AIR CCL * Used *0781294 35-1450 10:56 TERUM[employer] MEDICAL/RACQUEL CATHETER, FINECROSS 150CM FR 5 Used *[id number] 10:11 VASCULAR [employer]UTIONS CATHETER, FR6 GUIDELINER FR 6 5571 *[id number] Used SHEATH, FR6 TRANSRADIAL RM*[id number] Scrap: Physician 08:15 [employer] to [employer] MEDICAL FR 6 SLENDER 10CM *[id number] choice Equipment Model, Serial, Lot Number and Expiration Data Description Model Number Serial Number Lot Number Expiration Date ART 3.5 GUIDE CATHETER [id number] 07-04-2019 RUNWAY BALLOON, 1.5 X 6MM SPRINTER [id number] 05-18-2018 CATHETER, FINECROSS 150CM [id number] 10-03-2018 WIRE, CHOICE PT 300CM PT EX. [id number] 09-25-2017 SUPP History: Current Medications Medication Dosage/Unit Route Frequency Last Date/Time Taken ASA 81 mg PLAVIX 75 mg Statins (any) Neurontin NORVASC History: Allergies Allergy Reaction No Known Allergies History: Risk Factors Family History of Hypertension Dyslipidemia Previous LA Previous Heart Failure Premature CAD Yes Yes No No No Prior Valve Prior PCI Prior CABG Surgery No No No Cerebrovascular Peripheral Artery Chronic Lung On Dialysis Diabetes Disease Disease Disease No Yes No No No History: Stress Tests Stress or Imaging Studies Performed Yes Standard Exercise Stress Test No Stress Echo No Stress Test SPECT Stress Test SPECT Result Stress Test SPECT Ischemia Risk/Extent Yes Positive Intermediate Stress Test CMR No Cardiac CTA Coronary Calcium Score No No History: Other Disease Selection Items HTN History: Other Current Smoker No Labs Hgb (g/dl) Hct (%) WBC (l/cumm) Platelets (thousands) 11.60-17.00 35.00-51.00 4.00-11.00 150.00-450.00 12.0 36.1 4.8 199 BUN (mg/dl) Creatinine (mg/dl) BUN:Creatinine (1:x) 7.00-18.00 0.50-1.30 10.00-20.00 13 1.2 10.8 Na (meq/l) K (meq/l) 136.00-145.00 3.50-5.10 142 3.3 INR (PTT:PT) 0.90-1.10 1 CPK-MB (ng/ML) 0.50-3.60 Not Drawn Medication Medication Total Dose (Bolus/Oral) Medication Total Dosage/Unit 1% XYLOCAINE 20 mL FENTANYL 100 mcg HEPARIN 21786 units NTG (IC) 100 mcg OXYGEN 4 l/min PROTAMINE 20 mg VERSED 4 mg Medications (Bolus/Oral) Medication Time Given Dosage/Unit Administered By Reason OXYGEN 03/26/2017 9:00:50 AM 4 l/min Rico Post RN 4 l/min OXYGEN given in lab by Rico Post RN via Nasal. FENTANYL 03/26/2017 9:05:34 AM 50 mcg Rico Post RN 50 mcg FENTANYL given in lab by Rico Post RN in Left Antecubital via Peripheral IV. Ordered by Jose Sumner. 1% XYLOCAINE 03/26/2017 9:06:30 AM 20 mL Jose Rodriguez 20 mL 1% XYLOCAINE given in lab by Jose Rodriguez in Right Groin via Subcutaneous. VERSED 03/26/2017 9:06:42 AM 2 mg Rico Post RN 2 mg VERSED given in lab by Rico Post RN in Left Antecubital via Peripheral IV. Ordered by Jose Evans. HEPARIN 03/26/2017 9:09:36 AM 8000 units Rico Post RN 8000 units HEPARIN given in lab by Rico Post RN in Left Antecubital via Peripheral IV. Ordered by Jose Rodriguez. VERSED 03/26/2017 9:38:07 AM 1 mg Rico Post RN 1 mg VERSED given in lab by Rico Post RN in Left Antecubital via Peripheral IV. Ordered by Jose Evans. HEPARIN 03/26/2017 9:48:07 AM 2000 units Rico Post RN 2000 units HEPARIN given in lab by Rico Post RN in Left Antecubital via Peripheral IV. Ordered by Jose Rodriguez. FENTANYL 03/26/2017 9:58:48 AM 25 mcg Rico Post RN 25 mcg FENTANYL given in lab by Rico Post RN in Left Antecubital via Peripheral IV. Ordered by Jose Sumner. 03/26/2017 10:23:13 VERSED 1 mg Rico Post RN, AM 1 mg VERSED given in lab by Rico Post RN in Left Antecubital via Peripheral IV. Ordered by Jose Evans. 03/26/2017 10:55:36 HEPARIN 2000 units Rico Post RN, AM 2000 units HEPARIN given in lab by Rico Post RN in Left Antecubital via Peripheral IV. Ordered by Jose Rodriguez. 03/26/2017 11:02:27 FENTANYL 25 mcg Sincere GAY, Rico TRIANA 25 mcg FENTANYL given in lab by Rico Post RN in Left Antecubital via Peripheral IV. Ordered by Jose Sumner. 03/26/2017 11:09:49 NTG (IC) 100 mcg Jose Rodriguez AM 100 mcg NTG (IC) given in lab by Jose Rodriguez in Right Groin via Intra-coronary. 03/26/2017 11:18:23 PROTAMINE 20 mg Rico Post RN, AM 20 mg PROTAMINE given in lab by Rico Post RN in Left Antecubital via Peripheral IV. Ordered by Jose Sumner. Medication (Drip) Medication Time Given Dosage/Unit Concentration/Unit Diluent (ml) Solutio n IV Solutions 03/26/2017 8:29:02 AM 50 mL (IV) NaCl .9 IV Solutions given in lab by Rico Post RN in Left Antecubital via Peripheral IV. Pump/Drip Flow us ing NaCl .9. Initial Case Assessment Cardiovascular HR Rhythm NIBP Chest Pain 48 sabi 140/84 0 Skin color Skin Normal Warm Dry Circulatory - Right Pulses Dorsalis Pedis Femoral Radial 2 2 2 Scale (0,1,2,3,4,d) Circulatory - Left Pulses Dorsalis Pedis Femoral Radial 3 3 Scale (0,1,2,3,4,d) Neurological State Oriented to time-place- Alert Moves all extremities person Respiration - General Respiration Rate SpO2 (%) (B/min) 9 100 Final Case Assessment Cardiovascular HR Rhythm NIBP Chest Pain 48 sabi 138/77 0 Skin color Skin Normal Warm Dry Circulatory - Right Pulses Dorsalis Pedis Femoral 2 2 Scale (0,1,2,3,4,d) Circulatory - Left Pulses Dorsalis Pedis Femoral 3 3 Scale (0,1,2,3,4,d) Neurological State Oriented to time-place- Alert Moves all extremities person Respiration - General Respiration Rate SpO2 (%) O2 (lpm) (B/min) 17 98 4 Chronological Log Time Study Chronological Log 8:26:00 Patient arrived via Bed. 8:28:43 Patient Name, D.O.B, / Armband Verified By R.N. 8:28:43 Consent signed by the physician and the patient and verified by the Credit Manager staff. 8:28:44 Pre-op and post- op instructions given; patient acknowledges understanding of instructions. 8:28:45 Verbal Stimulation=2 Physical Stimulation=2 Airway=2 Respiration=2 TOTAL=8. (0=absent, 1=li mited, 2=present) 8:28:47 Allens test performed on the right radial and ulnar artery. 8:28:49 Patient has been NPO for Less than 6Hrs. 8:28:50 Skin Breakdown- access laura from yesterday's radial procedure 8:28:55 Patient Warmer Placed on the Table. 8:29:00 Marline Prominences Protected 8:29:01 A # 20 IV was noted in the Antecubital (left). Grade = patent 8:29:02 IV Solutions given in lab by Rico Post RN in Left Antecubital via Peripheral IV. Pump/Dr ip Flow using NaCl .9. 8:29:08 History and physical on the chart or being dictated. Assessment: Initial Case, HR=48 BPM, Rhythm=sabi, WLVU=236/84 mmhg, Chest Pain=0, Color=Katy l, Skin = Warm, Dry Right Pulses: Dariel Ped=2, Femoral=2, Radial=2 8:29:09 Left Pulses: Dariel Ped=3, Femoral=3 Neurological: State=Alert, Ox3, BONE Respiration: Resp=9 B/min, ReL6=306 % Vitals capture started with the following parameters, Patient=Adult, Interval=5 min, Initial Pre luwcc=786 mmHg, 8:31:42 Deflation Rate=5 mmHg, Cuff placed on Left Arm 8:32:18 HR=55 bpm, JURO=555/84 mmhg, SpO2=98.0 % 8:37:21 HR=49 bpm, BFEZ=596/78 mmhg, SpO2=99.0 %, Resp=7 B/min 8:39:19 Reference ECG taken 8:42:24 HR=49 bpm, CHKF=582/79 mmhg, SpO2=98.0 %, Resp=9 B/min 8:43:23 Right Radial and groin(s) prepped with 2% chlorhexidine, and draped after a 3 min. waiting t ricki. 8:44:18 MD arrived. 8:48:02 HR=53 bpm, WATO=746/74 mmhg, SpO2=99.0 %, Resp=7 B/min 8:51:20 Pressure channel 1 zeroed. 8:52:20 HR=48 bpm, HJSG=771/77 mmhg, SpO2=98.0 %, Resp=8 B/min 8:57:19 HR=53 bpm, EMNB=464/86 mmhg, SpO2=86 %, Resp=7 B/min 9:00:50 4 l/min OXYGEN given in lab by Rico Post RN via Nasal. 9:02:22 HR=55 bpm, IXXL=281/84 mmhg, SpO2=93.0 %, Resp=20 B/min 9:05:01 Case Start Time Out. Correct patient, correct procedure, correct physician, power injector loaded, or not l oaded with contrast with 9:05:25 surgical team present. Time Out Concurred by and individual staff in procedure. 9:05:34 50 mcg FENTANYL given in lab by Rico Post RN in Left Antecubital via Peripheral IV. Order ed by Jose Rodriguez. 9:06:30 20 mL 1% XYLOCAINE given in lab by Jose Rodriguez in Right Groin via Subcutaneous. 9:06:42 2 mg VERSED given in lab by Rico Post RN in Left Antecubital via Peripheral IV. Ordered b Jose Jhaveri. 9:08:01 Access site was Right Femoral Artery. 9:08:08 HR=47 bpm, OMHJ=945/69 mmhg, SpO2=98.0 %, Resp=22 B/min A INTRODUCER SET, MICROPUNCTURE, STIFFENED FR 5 was advanced into the Fem Art (right) using the 9:08:09 Percutaneous technique. A SHEATH, FR6.5 PRELUDE 11CM FR 6.5 was exchanged in the Fem Art (right). This was necessary in order to 9:08:17 accomodate a larger catheter. 9:09:36 8000 units HEPARIN given in lab by Rico Post RN in Left Antecubital via Peripheral IV. Or dered by Jose Rodriguez. A JR 4.0 GUIDE CATHETER FR 6 was advanced over a wire. OMNIPAQUE, 350 MG, 150ML 150ML was used f or 9:10:44 injections. 9:13:01 HR=49 bpm, VBGV=130/73 mmhg, SpO2=97.0 %, Resp=11 B/min 9:14:00 A WIRE, BALANCE MIDDLEWEIGHT 300CM (REY) 300CM was inserted via Fem Art (right). 9:14:16 NIBP STAT measurement started. 9:14:50 HR=53 bpm, XMDP=748/73 mmhg, SpO2=98.0 %, Resp=17 B/min 9:17:21 HR=53 bpm, KMUT=598/75 mmhg, SpO2=98.0 %, Resp=16 B/min A BALLOON, 1.5 X 6MM SPRINTER 6MM was inserted over WIRE, BALANCE MIDDLEWEIGHT 300CM (REY) 300C M via 9:21:01 the Fem Art (right). 9:22:22 HR=55 bpm, OLYA=762/81 mmhg, SpO2=96.0 %, Resp=11 B/min Recorded Pressure: Ao, HR=56, Condition=Condition 1 9:23:48 (Aorta) Ao 123/74/96 9:26:41 Activated Clotting Time Drawn 9:27:09 Wire removed 9:27:23 HR=51 bpm, CYLM=874/77 mmhg, SpO2=98.0 %, Resp=18 B/min 9:27:32 A WIRE, CHOICE PT 300CM PT EX. SUPP 300CM was inserted via Fem Art (right). 9:32:24 HR=55 bpm, GCFI=862/71 mmhg, SpO2=98.0 %, Resp=16 B/min 9:35:02 Wire removed 9:36:16 ACT (Normal Range 90-180) = 400 9:36:38 A WIRE, KERI HOUSERER XT 300CM 300CM was inserted via Fem Art (right). 9:37:23 HR=48 bpm, MOOM=212/73 mmhg, SpO2=98.0 %, Resp=18 B/min 9:38:07 1 mg VERSED given in lab by Rico Post RN in Left Antecubital via Peripheral IV. Ordered b y Jose Rodriguez. 9:41:46 Wire removed 9:41:55 Balloon Removed. 9:42:13 Catheter was removed 9:42:23 HR=52 bpm, BMEN=189/84 mmhg, SpO2=97.0 %, Resp=26 B/min 9:42:25 Activated Clotting Time Drawn A AL .75 GUIDE CATHETER FR 6 was advanced over a wire. OMNIPAQUE, 350 MG, 150ML 150ML was used for 9:42:47 injections. 9:45:11 A WIRE, [employer] Network SolutionsER XT 300CM 300CM was inserted via Fem Art (right). 9:47:20 ACT (Normal Range 90-180) = 258 9:47:26 HR=51 bpm, UBAC=908/74 mmhg, SpO2=97.0 %, Resp=12 B/min 9:48:07 2000 units HEPARIN given in lab by Rico Post RN in Left Antecubital via Peripheral IV. Or dered by Jose Rodriguez. 9:53:10 HR=49 bpm, AWIN=566/74 mmhg, SpO2=98.0 %, Resp=22 B/min 9:53:32 Wire removed 9:53:43 Catheter was removed A ART 3.5 GUIDE CATHETER RUNWAY FR 6 was advanced over a wire. OMNIPAQUE, 350 MG, 150ML 150ML w as used 9:55:25 for injections. 9:56:59 A WIRE, VetCompare FIELDER XT 300CM 300CM was inserted via Fem Art (right). A BALLOON, 1.5 X 6MM SPRINTER 6MM was inserted over WIRE, VetCompare FIELDER XT 300CM 300CM via the Fem Art 9:57:05 (right). 9:57:28 HR=47 bpm, UBXR=096/74 mmhg, SpO2=97.0 %, Resp=21 B/min 9:58:48 25 mcg FENTANYL given in lab by Rico Post RN in Left Antecubital via Peripheral IV. Order ed by Jose Rodriguez. 10:02:27 HR=49 bpm, WWOR=955/76 mmhg, SpO2=97.0 %, Resp=13 B/min 10:04:22 Wire removed 10:05:10 A WIRE, CHOICE PT 300CM PT EX. SUPP 300CM was inserted via Fem Art (right). 10:08:07 HR=52 bpm, WWWH=155/77 mmhg, SpO2=97.0 %, Resp=11 B/min 10:10:57 Wire removed 10:10:59 Balloon Removed. A CATHETER, FR6 GUIDELINER FR 6 was advanced over a wire. OMNIPAQUE, 350 MG, 150ML 150ML was us ed for 10:12:08 injections. 10:12:23 A WIRE, CHOICE PT 300CM PT EX. SUPP 300CM was inserted via Fem Art (right). 10:12:27 HR=51 bpm, KQBD=448/76 mmhg, SpO2=97.0 %, Resp=15 B/min 10:14:55 Wire removed 10:15:10 Guideliner Catheter was removed 10:16:05 A WIRE, WHISPER W/HYDROCOAT 300CM 300CM was inserted via Fem Art (right). 10:17:28 HR=54 bpm, WRPT=295/72 mmhg, SpO2=97.0 %, Resp=18 B/min 10:22:25 HR=52 bpm, DMGM=406/77 mmhg, SpO2=97.0 %, Resp=23 B/min 10:23:13 1 mg VERSED given in lab by Rico Post RN in Left Antecubital via Peripheral IV. Ordered by Jose Rodriguez. 10:27:14 Wire removed 10:27:18 Balloon Removed. 10:27:22 Catheter was removed 10:27:30 HR=47 bpm, GAFX=339/62 mmhg, SpO2=97.0 %, Resp=17 B/min 10:28:51 A AR 1 GUIDE CATHETER FR 6 was advanced over a wire. OMNIPAQUE, 350 MG, 150ML 150ML was use d for injections. 10:29:05 A WIRE, WHISPER W/HYDROCOAT 300CM 300CM was inserted via Fem Art (right). A CATHETER, FR6 GUIDELINER FR 6 was advanced over a wire. OMNIPAQUE, 350 MG, 150ML 150ML was us ed for 10:30:58 injections. 10:33:06 HR=45 bpm, ZFEN=974/73 mmhg, SpO2=97.0 %, Resp=25 B/min A BALLOON, 1.5 X 6MM SPRINTER 6MM was inserted over WIRE, ASAHI FIELDER XT 300CM 300CM via the Fem Art 10:33:43 (right). 10:37:28 HR=44 bpm, FUXJ=629/76 mmhg, SpO2=97.0 %, Resp=20 B/min 10:41:07 Activated Clotting Time Drawn 10:42:29 HR=49 bpm, JPFM=237/81 mmhg, SpO2=98.0 %, Resp=18 B/min 10:42:43 Balloon Removed. 10:42:48 Wire removed 10:42:55 Guideliner and ART Catheter was removed A XBRCA .070 GUIDE CATHETER FR 6 was advanced over a wire. OMNIPAQUE, 350 MG, 150ML 150ML was u sed for 10:43:23 injections. 10:44:18 A WIRE, [employer] FIELDER XT 300CM 300CM was inserted via Fem Art (right). A BALLOON, 1.5 X 6MM SPRINTER 6MM was inserted over WIRE, WHISPER W/HYDROCOAT 300CM 300CM via t he 10:44:20 Fem Art (right). 10:46:55 ACT (Normal Range 90-180) = 260 10:47:30 HR=44 bpm, WHAI=681/74 mmhg, SpO2=97.0 %, Resp=23 B/min 10:52:31 HR=51 bpm, PFTS=039/80 mmhg, SpO2=97.0 %, Resp=17 B/min 10:55:36 2000 units HEPARIN given in lab by Rico Post RN in Left Antecubital via Peripheral IV. O rdered by Jose Rodriguez. 10:56:05 Balloon Removed. A CATHETER, FINECROSS 150CM FR 5 was advanced over a wire. OMNIPAQUE, 350 MG, 150ML 150ML was u sed for 10:57:02 injections. 10:57:34 HR=52 bpm, PIFT=729/75 mmhg, SpO2=98.0 %, Resp=16 B/min 11:02:27 25 mcg FENTANYL given in lab by Rico Post RN in Left Antecubital via Peripheral IV. Orde red by Jose Rodriguez. 11:02:34 HR=48 bpm, XCWU=979/74 mmhg, SpO2=97.0 %, Resp=25 B/min 11:04:53 Wire removed 11:05:29 A WIRE, WHISPER W/HYDROCOAT 300CM 300CM was inserted via Fem Art (right). 11:07:37 HR=48 bpm, IKTX=529/73 mmhg, SpO2=98.0 %, Resp=18 B/min 11:09:49 100 mcg NTG (IC) given in lab by Jose Rodriguez in Right Groin via Intra-coronary. 11:10:36 Catheter was removed 11:10:38 Wire removed 11:11:58 An injection in the Fem Art (right) was made through the SHEATH, FR6.5 PRELUDE 11CM FR 6.5. 11:12:14 VASCADE, FR6 CLOSURE SYSTEM FR 6\7 placement in the Fem Art (right) 11:13:10 HR=48 bpm, BBCP=353/81 mmhg, SpO2=98.0 %, Resp=22 B/min 11:17:37 HR=48 bpm, MIWC=619/77 mmhg, SpO2=97.0 %, Resp=22 B/min 11:18:00 Case End 11:18:23 20 mg PROTAMINE given in lab by Rico Post RN in Left Antecubital via Peripheral IV. Ord ered by Jose Rodriguez. 11:18:47 Sterile dressing applied to site 11:18:54 Case complication noted. Unable to cross lesion in RCA. 11:19:16 Bedside Report will be given. 11:19:20 Implantable Device card placed in patient's chart. VASCADE. 11:19:34 A Left Heart Cath was performed. Assessment: Final Case, HR=48 BPM, Rhythm=sabi, HETL=139/77 mmhg, Chest Pain=0, Color=Normal, Skin = Warm, Dry Right Pulses: Dariel Ped=2, Femoral=2 11:19:43 Left Pulses: Dariel Ped=3, Femoral=3 Neurological: State=Alert, Ox3, BONE Respiration: Resp=17 B/min, SpO2=98 %, O2=4 lpm 11:23:11 HR=47 bpm, LGUG=812/79 mmhg, SpO2=97.0 %, Resp=20 B/min 11:27:00 Patient moved to stretcher 11:27:37 HR=46 bpm, NULF=188/72 mmhg, SpO2=98.0 %, Resp=11 B/min End Study - Contrast Media Used In Study Contrast Total Opened (mL) Total Used (mL) Total Wasted (mL) Omnipaque 50 50 0 End Study - Maximum Contrast Load Max Contrast Load (mL) 452.8 End Study - Radiation Exposure Fluoro Time (minutes) 72.8 End Study - Patient Disposition Complications Transferred To Interventional Outcome No Telemetry Bed unsuccessful
[2017-03-26] MEDS ORDERED: IOHEXOL 350 MG/ML 50 ML BTL (for Cath Lab) OTHER ONE (11:48)
--- NOTE | 2017-03-26 12:08 | MA ---
cc: JOE MARISCAL DATE: 03/26/2017 DATE OF : 1945 PROCEDURE PERFORMED 1. Attempted PCI to the right coronary artery. 2. Selective right coronary angiography. 3. Selective right common femoral artery angiography. PROCEDURE DESCRIPTION Consent signed. The patient was brought to the cardiac laboratory director in a fasting state. The right groin was prepped and draped in sterile fashion. Using 1% lidocaine for local anesthesia and a micropuncture kit a 6 Armenian sheath was inserted into the right common femoral artery. Right common femoral artery angiography was performed to confirm position of the sheath then heparin was given for IV anticoagulation. The right coronary artery was engaged with a JR4, 6 Armenian guide. We attempted wiring the vessel with wire escalation and different wires, however, we were not successful due to the tortuosity of the vessel calcification and angulation. We tried multiple guides including XB, AR, AL, 0.075 Hockey Stick, however, none of the guides gave us enough support to cross the significantly calcified lesion. In addition, we also used a guide liner and an begk-asi-eggx balloon but this was not successful. We used BMW, Runthrough, Whisper, Prowater and Fiddler wires. After several hours we were able to cross distal to the lesion, however, the wire did not go through and we were not able to anchor it distally in the right coronary artery. Thus the procedure was aborted. CONCLUSIONS Two-vessel coronary artery disease with significant stenosis of the right coronary artery and the obtuse marginal branch. The patient has a preserved ejection fraction. The patient is asymptomatic for ischemia. He is in the process of preoperative evaluation for a renal mass. PLAN/RECOMMENDATIONS The patient will go to [facility] for post cath care. After bed rest he will be able to ambulate. We will continue optimization of medical therapy for CAD, and he will be discharged home with follow-up with Dr. Dumont on an outpatient basis. Regarding his scheduled renal mass surgery. The patient remains asymptomatic from the cardiovascular standpoint. There is no need for revascularization to decrease mortality before the operation. At this point I would optimize his CAD management as much as tolerated by heart rate and blood pressure, clear him for renal mass surgery and follow-up with cardiology after procedure is done. MD SYLWIA Loco/GRICEL /11:42 AM /11:58 AM
[2017-03-26] MEDS ORDERED: ONDANSETRON HCL 4 MG/2 ML VIAL IV PUSH PRN (12:30)
[2017-03-26] MEDS ORDERED: ATROPINE SULFATE 1 MG/ML VIAL IV PUSH PRN (12:30)
[2017-03-26] MEDS ORDERED: SODIUM CHLOR 0.9% 1000 ML INJ 1,000 ML IV SCH (12:30)
[2017-03-26] MEDS ORDERED: MISC INFORMATION XX ONE (12:30)
[2017-03-26 13:03] LABS: HEMOGLOBIN A1a 1.2 %; HEMOGLOBIN A1b 1.7 %; HEMOGLOBIN Ao 84.8 %; HEMOGLOBIN LA1C 2.1 %; HEMOGLOBIN P3 3.8 %
[2017-03-26] MEDS ORDERED: ATOR40TA16 PO (14:43)
--- NOTE | 2017-03-26 14:44 | HHI.DCPOC ---
Discharge Care Plan Diagnosis: (1) Coronary artery disease (2) HTN (hypertension) Goals to Promote Your Health * To prevent worsening of your condition and complications * To maintain your health at the optimal level Directions to Meet Your Goals Take your medications as prescribed Follow your dietary instruction Follow activity as directed Keep your appointments as scheduled Take your immunizations and boosters as scheduled If your symptoms worsen call your PCP, if no PCP go to Urgent Care Center or Emergency Room Smoking is Dangerous to Your Health. Avoid second hand smoke Call the 24-hour hour crisis hotline for domestic abuse at Tian Barker MD Mar 26, 2017 14:44
--- NOTE | 2017-03-26 14:46 | HHI.PR ---
Subjective Remarks Nursing denies any deterioration since last night. Patient apparently lying in bed and is bradycardic in the 40s. Denies any symptoms of chest pain or lightheadedness. went for catheterization this morning Objective Vital Signs Date Time Temp Pulse Resp B/P (MAP) Pulse Ox O2 Delivery O2 Flow Rate FiO2 03/26/17 13:00 48 03/26/17 12:00 44 03/26/17 12:00 98.0 49 108/66 (80) 97 03/26/17 08:00 45 03/26/17 07:00 44 03/26/17 06:27 43 03/26/17 05:41 45 03/26/17 04:42 97.9 49 105/50 (68) 97 03/26/17 04:42 44 03/26/17 03:23 44 03/26/17 02:00 52 03/26/17 01:00 46 03/26/17 00:56 97.6 45 116/69 (85) 98 03/26/17 00:00 46 03/25/17 23:00 46 03/25/17 22:00 44 03/25/17 21:00 46 03/25/17 20:00 48 03/25/17 20:00 97.1 45 116/64 (81) 98 03/25/17 19:00 47 03/25/17 18:00 42 03/25/17 17:23 98 21 03/25/17 17:00 46 03/25/17 16:00 40 03/25/17 15:08 97.9 48 16 126/67 (86) 98 03/25/17 15:06 97.7 48 16 126/67 (86) 98 03/25/17 15:00 42 I/O 03/25/17 03/25/17 03/25/17 03/26/17 03/26/17 03/26/17 07:00 15:00 23:00 07:00 15:00 23:00 Intake Total 480 ml 400 ml 600 ml Output Total 900 ml 525 ml Balance 480 ml -500 ml 75 ml Intake Oral 480 ml 600 ml IV Total 400 ml Output Urine Total 900 ml 525 ml Result Diagram: 03/26/1751203/26/17512 Objective Remarks Heart sounds demonstrate a mildly bradycardic rate, regular rhythm Unlabored breathing, clear lungs bilaterally, no lower extremity edema A/P Assessment and Plan S/P Cardiac Catheterization - Dr. Mosqueda following, primary physician - Right brachial access. No bleeding noted - Catheter conclusion showed two-vessel coronary artery disease with significant blockages in the left circumflex, OM and right coronary artery. Renal mass. chronic kidney disease. - PCI was attempted of the right coronary artery but was aborted due to significant difficulty passing the tip across the calcified lesion. We'll medically optimize by continuing aspirin, Plavix. We'll switch from pravastatin to Lipitor. We will hold off bbs given his bradycardia. Renal mass, right side, acute Chronic kidney disease - Patient is for right kidney cryoablation secondary to renal mass. Despite unsuccessful attempt of right coronary artery PCI, cardiology sees no need to withhold patient from renal mass surgery. Therefore patient is cleared from hospital standpoint to proceed with renal mass surgery. HTN History of CVA - Continue home medications Norvasc 10 mg daily, aspirin 81 mg daily, Plavix 75 mg daily, pravastatin 40 mg daily - Monitor BP trend. Noted bradycardia. History of bleeding ulcers - Continue pantoprazole DVT prop SCD Tian Barker MD Mar 26, 2017 14:46
--- NOTE | 2017-03-26 18:11 | EKG ---
Date Performed: 03/25/2017 Time Performed: 11:05:06 PTAGE: 72 years EKG: Sinus bradycardia Possible old inferior infarct Borderline ECG PREVIOUS TRACING : 03/06/2017 08.32 Compared to prior tracing no significant change DOCTOR: Eduardo Ortiz Interpretating Date/Time 03/26/2017 18:09:19
== END 2017-03-26 19:00 | disposition home or self-care (01) | DRG 287 ==
LOC: HDIC 10:18 → HDOC 10:18 → HCIS 13:42 → HDOC 14:43
PROVIDERS: ADMIT Hospitalist; ATTEND Hospitalist
PROC: B2111ZZ Fluoroscopy of Multiple Coronary Arteries using Low Osmolar Contrast (ICD-10-PCS; 2017-03-25)
PROC: 4A023N7 Measurement of Cardiac Sampling and Pressure, Left Heart, Percutaneous Approach (ICD-10-PCS; principal; 2017-03-25 12:30)
PROC: B41F1ZZ Fluoroscopy of Right Lower Extremity Arteries using Low Osmolar Contrast (ICD-10-PCS; 2017-03-26)
PROC: 4A023N7 Measurement of Cardiac Sampling and Pressure, Left Heart, Percutaneous Approach (ICD-10-PCS; 2017-03-26)
PROC: B2101ZZ Fluoroscopy of Single Coronary Artery using Low Osmolar Contrast (ICD-10-PCS; 2017-03-26)
DX: I25.10 Atherosclerotic heart disease of native coronary artery without angina pectoris (principal); I69.351 Hemiplegia and hemiparesis following cerebral infarction affecting right dominant side; C64.9 Malignant neoplasm of unspecified kidney, except renal pelvis; R00.1 Bradycardia, unspecified; I12.9 Hypertensive chronic kidney disease with stage 1 through stage 4 chronic kidney disease, or unspecified chronic kidney disease; N18.9 Chronic kidney disease, unspecified; M10.9 Gout, unspecified; Z87.11 Personal history of peptic ulcer disease; N28.89 Other specified disorders of kidney and ureter
CPT/HCPCS: 80048; 80053; 83036; 83735; 84100; 84439; 84443; 85002; 85025; 85610; 85730; 93005; 93454; 93458; 99152; 99153; C1725; C1760; C1769; C1887; C1893; G0269; J0583; J1644; J2250; J2720; J3010; J7030; Q9967

== ENCOUNTER 2017-04-24 07:29 | Day surgery (SDC) | payer OTHER ==
[2017-04-24] VITALS (7 sets, daily range): BP systolic 125–142; BP diastolic 63–77; PULSE 49–55; RESP 20; TEMP 97.4–98.4; O2SAT 92–97
[~2017-04-24] VITALS: Ht 175.3 cm; Wt 111.4 kg
[~2017-04-24 07:29] MED LIST changes: +ATOR40TA16 PO; -CLON0.1T PO; -PRAV40TA2 PO
[2017-04-24] MEDS ORDERED: CYAN1TAB24 PO (07:54)
[2017-04-24] MEDS ORDERED: CLON0.1T PO (07:54)
[2017-04-24] MEDS ORDERED: AUGM875T3 PO (07:54)
[2017-04-24 08:26] LABS: AUTOMATED NEUTROPHIL # 2.8 TH/MM3 (1.8-7.7); BASOPHIL # 0.1 TH/MM3 (0-0.2); BASOPHIL % 1.1 % (0.0-2.0); EOSINOPHIL # 0.3 TH/MM3 (0-0.4); EOSINOPHIL % 4.2 % (0.0-4.0); HEMATOCRIT 39.8 % (39.0-51.0); HEMO FLAGS DIFF FINAL; LYMPH % 34.3 % (9.0-44.0); MEAN CELL VOLUME 90.1 FL (80.0-100.0); MEAN CORPUSCULAR HEMOGLOBIN 30.2 PG (27.0-34.0); MEAN CORPUSCULAR HGB CONC 33.5 % (32.0-36.0); MONO % 12.9 % (0.0-8.0); NEUT % 47.5 % (16.0-70.0); PLATELET COUNT 213 TH/MM3 (150-450); RED BLOOD COUNT 4.41 MIL/MM3 (4.50-5.90); RED CELL DISTRIBUTION WIDTH 14.7 % (11.6-17.2); WHITE BLOOD COUNT 5.9 TH/MM3 (4.0-11.0)
[2017-04-24] MEDS ORDERED: SODIUM CHLOR 0.9% 1000 ML INJ 1,000 ML IV SCH (08:30)
[2017-04-24] MEDS ORDERED: ceFAZolin 2 GM PREMIX 50 ML IV SCH (08:30)
[2017-04-24] MEDS ORDERED: POVIDONE IODINE 5% (ANTISEPSIS KIT) 4 APPLICATIONS EACH NARE PRN (08:30)
[2017-04-24] MEDS ORDERED: METOPROLOL TARTRATE 25 MG TAB PO PRN (08:30)
[2017-04-24] MEDS ORDERED: LACTATED RINGER'S 1000 ML IV PRN (08:30)
[2017-04-24] MEDS ORDERED: CHLORHEXIDINE GLUCONATE 2 % 1 PACK (2 CLOTHS) TOPICAL PRN (08:30)
[2017-04-24] MEDS ORDERED: SODIUM CHLORID 0.9% 500 ML IV PRN (08:30)
[2017-04-24 08:37] LABS: INTERNATIONAL NORMALIZED RATIO 1.1 RATIO; PROTHROMBIN TIME - PATIENT 10.8 SEC (9.8-11.6)
[2017-04-24 08:39] LABS: BICARBONATE 28.2 MEQ/L (21.0-32.0); POTASSIUM 3.5 MEQ/L (3.5-5.1)
--- NOTE | 2017-04-24 11:58 | PD.RAD ---
Post CT Procedure Prog Note Pre Procedure Diagnosis: (1) Right renal mass Post Procedure Diagnosis: (1) Right renal mass Procedure Date: Apr 24, 2017 Supervising Radiologist: Freddy Gonzalez Anesthesia: General Plan of Activity Patient to Unit: [facility] Patient Condition: Good See PACS Report for procedural detail/treatment Freddy Gonzalez MD Apr 24, 2017 11:58
[2017-04-24] MEDS ORDERED: oxyCODONE/ACETAMINOPHEN 5 MG/325 MG TAB PO PRN (12:00)
[2017-04-24 12:55] LABS: HEMATOCRIT 41.1 % (39.0-51.0); REVIEW FLAG FINAL
--- NOTE | 2017-04-24 14:53 | RADRPT ---
EXAM DATE/TIME: 04/24/2017 10:54 [facility] COMPARISON: No previous studies available for comparison. INDICATIONS : History of left renal cell carcinoma with enlarging solid right renal mass. BIOPSY SITE: Right renal Anesthesia and pain control was provided by the Anesthesia department. Prophylactic antibiotics were administered with appropriate pre-procedure timing. Vancomycin within 2 hrs of procedure, Ancef (or alternative) within 1 hr of procedure start. DEVICE(S): 1.) 18 gauge Temno core biopsy needle 2.) 17 gauge introducer MEDICAL HISTORY : Hypertension. Cerebrovascular disease. SURGICAL HISTORY : None. ENCOUNTER: Initial ACUITY: 1 day PAIN SCORE: 0/10 LOCATION: Right flank A total of two core specimen(s) were obtained and sent to the laboratory for pathologic evaluation. PROCEDURE: 1. CT guided renal mass biopsy. Prior to the procedure informed consent was obtained. Any appropriate prior imaging studies were rev iewed. Using automated exposure control and adjustment of the mA and/or kV according to patient size, radiat ion dose was kept as low as reasonably achievable to obtain optimal diagnostic quality images. DICOM format image data is available electronically for review and comparison. The site was prepped in a sterile fashion. Full sterile technique was used, including cap, mask, pippa rile gloves and gown and a large sterile sheet. Hand hygiene and 2% chlorhexidine and/or betadine/al cohol prep was utilized per protocol for cutaneous antisepsis. The skin and subcutaneous tissues wer e infiltrated with local anesthetic solution. With CT guidance the previously identified target was localized. Biopsy was performed using the presc ribed needle as above. Adequate hemostasis was obtained with compression at the puncture site. The patient tolerated the procedure well and there were no complications. The patient was returned to the Radiology Outpatient Unit in stable condition. CONCLUSION: Uncomplicated CT guided biopsy. Please see accompanying cryoablation report for addit ional details. Freddy Gonzalez MD on April 24, 2017 at 14:50 Board Certified Radiologist. This report was verified electronically.
--- NOTE | 2017-04-24 14:54 | RADRPT ---
EXAM DATE/TIME: 04/24/2017 10:54 INDICATIONS : History of left renal cell carcinoma and new enlarging right renal mass. Anesthesia and pain control was provided by the Anesthesia department. DEVICE(S): 1.) Cryoablation probe MEDICAL HISTORY : Hypertension. Renal cell carcinoma. SURGICAL HISTORY : None. ENCOUNTER: Initial ACUITY: 1 day PAIN SCORE: 0/10 LOCATION: Right flank PROCEDURE : 1. CT guided cryoablation. Under sterile conditions and using aseptic technique with CT guidance the mass was localized and sati sfactory approach was taken to access the lesion. Using automated exposure control and adjustment of the mA and/or kV according to patient size, radiation dose was kept as low as reasonably achievable to obtain optimal diagnostic quality images. DICOM format image data is available electronically for review and comparison. [employer] (formerly [employer] Cryoprobes were employed using percutaneous technique employing the prescribed probes. A freeze-thaw, freeze-thaw technique was employed and serial imaging demonstrated an ice ball encomp assing the entire lesion. Post procedure images demonstrate expected postoperative changes without e vidence of hematoma. CONCLUSION: Uncomplicated cryoablation as above. Freddy Gonzalez MD on April 24, 2017 at 14:51 Board Certified Radiologist. This report was verified electronically.
[2017-04-24 15:57] LABS: HEMATOCRIT 37.9 % (39.0-51.0); REVIEW FLAG FINAL
== END 2017-04-24 17:41 | disposition home or self-care (01) ==
LOC: HROP 07:29 → HRIP 07:30 → HROP 17:41
PROVIDERS: ATTEND Urology
DX: N28.89 Other specified disorders of kidney and ureter (principal); Z85.528 Personal history of other malignant neoplasm of kidney; I10 Essential (primary) hypertension
CPT/HCPCS: 50200; 50593; 77012; 77013; 80048; 85014; 85018; 85025; 85610; 85730; 88305; C2618; J0690; J7040

== ENCOUNTER 2017-05-03 13:57 | Day surgery (SDC) | payer OTHER ==
[~2017-05-03 13:57] MED LIST changes: +AUGM875T3 PO; +CLON0.1T PO; -CYAN1TAB24; +CYAN1TAB24 PO
[2017-05-03 14:29] VITALS: BP 150/78; PULSE 55; RESP 20; TEMP 98.2; O2SAT 97
--- NOTE | 2017-05-03 16:56 | RADRPT ---
EXAM DATE/TIME: 05/03/2017 00:00 [facility] COMPARISON : INDICATIONS : F/U CRYO RENAL OBJECTIVE: Temperature: 98.2 Heart Rate: 55 Blood Pressure: 150/78 Respiratory: 20 Oximetry: 97 PNEUMONIA VACCINE: HISTORY OF PRESENT ILLNESS: 72-year-old male with history of left adenocarcinoma and the enlarging right renal mass status post c ryoablation on 04/24/2017. Biopsy performed at the time of ablation does not demonstrate any malignan t tissue. He is without complaints and denies fevers, chills, hematuria, or flank pain. ASSESSMENT: Uneventful postoperative course status post cryoablation of right renal mass. High degree of suspicio n for renal cell carcinoma given patient's history of prior renal cell carcinoma diagnosis despite th e negative biopsy. Patient will need baseline followup imaging in approximately 8 weeks. TIME SPENT: 15 minutes Freddy Gonzalez MD on May 03, 2017 at 16:41 Board Certified Radiologist. This report was verified electronically.
== END 2017-05-03 15:25 | disposition home or self-care (01) ==
LOC: HROP 13:57 → HRIP 14:16 → HROP 15:25
PROVIDERS: ATTEND Radiology Diagnostic Radiology
DX: Z09 Encounter for follow-up examination after completed treatment for conditions other than malignant neoplasm (principal); N28.89 Other specified disorders of kidney and ureter